=== PATIENT | female | born 1950 | race Caucasian/White ===

== ENCOUNTER 2020-11-25 12:40 | Inpatient (IN) ==
[2020-11-25] MEDS ORDERED: Acetaminophen 325 MG TABLET PO PRN (18:27)
[2020-11-25] MEDS ORDERED: *HR* LORazepam 1 MG TABLET PO PRN (18:28)
[2020-11-26] MEDS: *HR* Enoxaparin 40 MG/0.4 ML SYRINGE SQ SCH (06:46)
[2020-11-26 07:58] LABS: Basophils % 0.5 %; Eosinophils % 0.6 %; Hematocrit 35.5 % (35.3-44.9); Immature Granulocytes % 2.4 % (0-4); Lymphocytes # 0.7 K/mcL (0.6-4.6); Lymphocytes % 10.9 %; Mean Corpuscular HGB Conc 33.8 g/dL (31.6-35.5); Mean Corpuscular Hemoglobin 30.5 pg (28.0-33.3); Mean Corpuscular Volume 90.1 fL (83.0-100.0); Mean Platelet Volume 9.6 fL (9.4-12.4); Monocytes # 0.8 K/mcL (0.0-1.3); Monocytes % 12.7 %; Neutrophils # 4.8 K/mcL (1.6-8.9); Platelet Count 247 K/mcL (140-400); Red Blood Count 3.94 M/mcL (3.82-4.97); Red Cell Distribution Width 12.7 % (11.5-14.5); Segmented Neutrophils % 72.9 %; White Blood Count 6.6 K/mcL (4.3-11.1)
[2020-11-26 08:11] LABS: BUN/Creatinine Ratio 13 (6-26); Blood Urea Nitrogen 8 mg/dL (8-23); Calcium 8.3 mg/dL (8.6-10.3); Carbon Dioxide 28 mEq/L (23-29); Chloride 101 mEq/L (98-107); Glucose 83 mg/dL (70-105); Osmolality,Calculated 293 (280-300); Potassium 3.1 mEq/L (3.5-5.1); Sodium 143 mEq/L (136-145); eGFR For African Americans > 60 (> 60); eGFR For Non-African Americans > 60 (> 60)
[2020-11-26] MEDS ORDERED: DILANTIN 100 MG PO SCH (09:00)
[2020-11-26] MEDS ORDERED: LORAZEPAM 1MG TABLET PO SCH (09:00)
[2020-11-26] MEDS: DEXILANT 60 MG PO SCH ×3 (09:59→16:05)
[2020-11-26] MEDS: levoFLOXacin 750 MG TABLET PO SCH (10:00)
[2020-11-26] MEDS: *HR* LORazepam 1 MG TABLET PO SCH ×3 (10:14→20:27)
[2020-11-26] MEDS ORDERED: Ondansetron 4 MG/2 ML VIAL IVP PRN (15:13)
[2020-11-26] MEDS: Ondansetron ODT 4 MG TAB.RAPDIS SL PRN (16:02)
[2020-11-26] MEDS: Megestrol Acetate 400 MG/10 ML UDC PO SCH (16:05)
[2020-11-26] MEDS: DILANTIN 100 MG PO SCH (20:27)
[2020-11-27] MEDS: *HR* LORazepam 1 MG TABLET PO SCH ×3 (06:13→20:39)
[2020-11-27] MEDS: DEXILANT 60 MG PO SCH ×2 (06:13→17:10)
[2020-11-27] MEDS: DILANTIN 100 MG PO SCH ×2 (06:13→20:39)
[2020-11-27] MEDS: *HR* Enoxaparin 40 MG/0.4 ML SYRINGE SQ SCH (06:14)
[2020-11-27 07:48] LABS: Basophils # 0.1 K/mcL (0.0-0.2); Basophils % 0.7 %; Eosinophils # 0.1 K/mcL (0.0-0.6); Eosinophils % 1.3 %; Hematocrit 35.9 % (35.3-44.9); Hemoglobin 11.9 g/dL (11.5-15.4); Immature Granulocytes % 3.2 % (0-4); Lymphocytes # 0.7 K/mcL (0.6-4.6); Lymphocytes % 9.1 %; Mean Corpuscular HGB Conc 33.1 g/dL (31.6-35.5); Mean Corpuscular Hemoglobin 30.4 pg (28.0-33.3); Mean Corpuscular Volume 91.8 fL (83.0-100.0); Mean Platelet Volume 9.9 fL (9.4-12.4); Monocytes # 0.8 K/mcL (0.0-1.3); Neutrophils # 5.4 K/mcL (1.6-8.9); Platelet Count 271 K/mcL (140-400); Red Blood Count 3.91 M/mcL (3.82-4.97); Segmented Neutrophils % 74.7 %; White Blood Count 7.2 K/mcL (4.3-11.1)
[2020-11-27 08:05] LABS: BUN/Creatinine Ratio 17 (6-26); Blood Urea Nitrogen 10 mg/dL (8-23); Calcium 8.5 mg/dL (8.6-10.3); Carbon Dioxide 32 mEq/L (23-29); Chloride 98 mEq/L (98-107); Glucose 83 mg/dL (70-105); Osmolality,Calculated 294 (280-300); Potassium 3.2 mEq/L (3.5-5.1); Sodium 143 mEq/L (136-145); eGFR For African Americans > 60 (> 60); eGFR For Non-African Americans > 60 (> 60)
[2020-11-27] MEDS: Megestrol Acetate 400 MG/10 ML UDC PO SCH ×2 (08:45→08:52)
[2020-11-27] MEDS: levoFLOXacin 750 MG TABLET PO SCH (08:45)
[2020-11-27] MEDS: Ondansetron ODT 4 MG TAB.RAPDIS SL PRN (08:49)
[2020-11-28] MEDS: DILANTIN 100 MG PO SCH ×2 (06:27→21:11)
[2020-11-28] MEDS: DEXILANT 60 MG PO SCH ×2 (06:27→17:13)
[2020-11-28] MEDS: *HR* LORazepam 1 MG TABLET PO SCH ×3 (06:27→21:11)
[2020-11-28] MEDS: *HR* Enoxaparin 40 MG/0.4 ML SYRINGE SQ SCH (06:28)
[2020-11-28] MEDS: Megestrol Acetate 400 MG/10 ML UDC PO SCH (09:19)
[2020-11-29] MEDS: *HR* LORazepam 1 MG TABLET PO SCH ×3 (06:00→19:38)
[2020-11-29] MEDS: DEXILANT 60 MG PO SCH ×2 (06:01→16:02)
[2020-11-29] MEDS: *HR* Enoxaparin 40 MG/0.4 ML SYRINGE SQ SCH (06:01)
[2020-11-29] MEDS: DILANTIN 100 MG PO SCH ×2 (06:01→19:38)
[2020-11-29] MEDS: Ondansetron ODT 4 MG TAB.RAPDIS SL PRN (06:08)
[2020-11-30] MEDS: DILANTIN 100 MG PO SCH ×2 (05:36→21:57)
[2020-11-30] MEDS: *HR* LORazepam 1 MG TABLET PO SCH ×3 (05:36→21:57)
[2020-11-30] MEDS: DEXILANT 60 MG PO SCH ×2 (05:36→16:12)
[2020-11-30] MEDS: *HR* Enoxaparin 40 MG/0.4 ML SYRINGE SQ SCH (06:03)
[2020-11-30] MEDS: Ondansetron ODT 4 MG TAB.RAPDIS SL PRN (09:01)
[2020-11-30] MEDS: polyethylene glycoL 3350 17 GM POWD.PACK PO SCH (09:57)
[2020-11-30] MEDS ORDERED: 0.9 % Sodium Chloride 500 ML IVC PRN (19:10)
[2020-12-01] MEDS: *HR* Enoxaparin 40 MG/0.4 ML SYRINGE SQ SCH (05:30)
[2020-12-01] MEDS: DILANTIN 100 MG PO SCH ×2 (05:30→20:10)
[2020-12-01] MEDS: *HR* LORazepam 1 MG TABLET PO SCH ×3 (05:30→20:10)
[2020-12-01] MEDS: DEXILANT 60 MG PO SCH ×2 (05:30→15:25)
[2020-12-01] MEDS: polyethylene glycoL 3350 17 GM POWD.PACK PO SCH (08:11)
[2020-12-01 09:16] VITALS: RESP 18
[2020-12-02] MEDS: DEXILANT 60 MG PO SCH ×2 (05:44→16:08)
[2020-12-02] MEDS: DILANTIN 100 MG PO SCH ×2 (05:44→20:27)
[2020-12-02] MEDS: *HR* LORazepam 1 MG TABLET PO SCH ×3 (05:44→20:27)
[2020-12-02] MEDS: *HR* Enoxaparin 40 MG/0.4 ML SYRINGE SQ SCH (05:44)
[2020-12-02 06:53] LABS: Basophils % 0.7 %; Eosinophils # 0.1 K/mcL (0.0-0.6); Eosinophils % 1.4 %; Hematocrit 32.9 % (35.3-44.9); Hemoglobin 11.2 g/dL (11.5-15.4); Immature Granulocytes % 1.6 % (0-4); Lymphocytes # 1.2 K/mcL (0.6-4.6); Mean Corpuscular Hemoglobin 30.9 pg (28.0-33.3); Mean Corpuscular Volume 90.9 fL (83.0-100.0); Mean Platelet Volume 9.8 fL (9.4-12.4); Monocytes # 0.8 K/mcL (0.0-1.3); Monocytes % 14.3 %; Neutrophils # 3.4 K/mcL (1.6-8.9); Platelet Count 408 K/mcL (140-400); Red Blood Count 3.62 M/mcL (3.82-4.97); Red Cell Distribution Width 12.9 % (11.5-14.5); White Blood Count 5.6 K/mcL (4.3-11.1)
[2020-12-02 07:11] LABS: BUN/Creatinine Ratio 23 (6-26); Blood Urea Nitrogen 15 mg/dL (8-23); Calcium 8.4 mg/dL (8.6-10.3); Carbon Dioxide 32 mEq/L (23-29); Chloride 100 mEq/L (98-107); Glucose 84 mg/dL (70-105); Osmolality,Calculated 294 (280-300); Potassium 3.1 mEq/L (3.5-5.1); Sodium 142 mEq/L (136-145); eGFR For African Americans > 60 (> 60); eGFR For Non-African Americans > 60 (> 60)
[2020-12-02] MEDS: polyethylene glycoL 3350 17 GM POWD.PACK PO SCH (10:07)
[2020-12-03] MEDS: DILANTIN 100 MG PO SCH (05:09)
[2020-12-03] MEDS: DEXILANT 60 MG PO SCH (05:09)
[2020-12-03] MEDS: *HR* Enoxaparin 40 MG/0.4 ML SYRINGE SQ SCH (05:09)
[2020-12-03] MEDS: *HR* LORazepam 1 MG TABLET PO SCH (05:09)
[2020-12-03] MEDS: polyethylene glycoL 3350 17 GM POWD.PACK PO SCH (08:38)
[2020-12-03 23:34] VITALS: BP 141/60; PULSE 68; TEMP 98.8; O2SAT 97
== END 2020-12-03 12:20 | disposition home health service (06) | DRG 945 ==
LOC: INPPIK 19:48
PROVIDERS: ADMIT Family Medicine; ATTEND Family Medicine